=== PATIENT | female | born 1975 | race Caucasian/White ===

== ENCOUNTER 2023-01-20 10:05 | Outpatient (AMB) | payer MEDICAID, SELFPAY ==
[2023-01-20 10:09] VITALS: BP 104/82; PULSE 79; O2SAT 99; BMI 20.2
--- NOTE | 2023-01-20 10:09 | MHC.OFFVIS ---
Intake Vital Signs 01/20/23 10:09 Height 5 ft 3 in Weight 114 lb 2 oz BMI 20.2 BP 104/82 Blood Pressure Location Rt brachial Position Sitting Pulse 79 Pulse Source Pulse Oximeter Pulse Oximetry (%) 99 Oxygen Delivery Method Room Air Intake Visit Reasons: NPV-Migraines Intake Note: Pt presents as a npv for Migraines. Pt states that the headaches are pretty consistent and started at age 10 or so. Pt is using ajovy injections and they help a little. regular migraines without aura. Store Operations Specialist Required: No Allergies Sulfa (Sulfonamide Antibiotics) [Sulfa (Sulfonamides)] Adverse Reaction (Unverified 01/20/23 10:15) N/V Medication List - Last Reconciled 01/20/23 by RAFFY Saeed citalopram 20 mg PO DAILY fremanezumab-vfrm (Ajovy) mg subcut ibuprofen 200 mg PO Q6H PRN [ketoralac IM PRN] lorazepam 0.5 mg PO TID PRN ondansetron 4 mg PO Q6H PRN tramadol 50 mg PO BID PRN HPI HPI Comments History of Present Illness Details Right-handed 47-yr-old female presents for new pt evaluation of headache disorder, specifically per referral by Dr Rome Clemente to discuss further optimizing her migraine treatment regimen. Headache questionnaire: Age/time of onset? Around age 10 Preceding causes? None. Headache characteristics? Always left sided- moves up from the back of the head up into head over into the jaw and down into her neck. Dull ache, stabbing if more severe Pain intensity? [id number] Prodrome symptoms? Foggy and tiredness, possibly some head pressure Aura? When she 1st had migraines, she had numbness and tingling and would speak in jibebrish Associated symptoms? photophobia, phonophobia, some osmophobia, left sided allodynia, sometimes nausea, lightheaded/dizzy, brain fog Focal weakness, Parethesias, Autonomic s/s? Watery. Postdrome? Residual fatigue and fogginess Triggers? Weather changes, alcohol, certain horse rider, stress Positional, valsalva, exertional, sexual activity triggers? Sometimes jogging if it really hot. Menstrual triggers? some menstrual changes- but has a mirena IUD Time of day? Worse as the day goes on- usually the evening Duration? Varies- few hours-days Frequency? Varies- at least 15 headache days per month How does headache impact your life? Sometimes has to miss work- works as a therapist at [employer]. Current acute medication use/interventions: Using Tramadol- using a few times a week for LUE CRPS. Previous acute medication use: Sumatriptan- ineffective. Current preventative medication use: Ajovy 225mg either 225mg monthly and more recently 675mg q 3 months- helps but then wears off. Previous preventative medication use: Topiramate- ineffective. Note: She has not tried CCB or BBs d/t lightheadedness and prone to low BP/hypotension Non-pharmacological interventions: Rest, ice caps Other history of headache disorder? None History of musculoskeletal disorders or injury? In 2018, she had a bicep/shoulder injury- after the shoulder repair she had increased LUE pain- was dx'd w/ CRPS. Had a Ketamine inj at [facility]- which was helpful but does still have some LUE discomfort and left hand discolorations- sometimes worse when the headaches worse. History of concussion/head injury? Had a skull fracture at around 18 months- no residual effects. History of mood disorder? Mild anxiety History of sleep disorder? Can have difficulty falling asleep at times History of respiratory disease? None History of CV disease? None History of coagulopathy? None History of endocrine or metabolic disease? None History of seizure? None Other? None Family planning? None Family history of migraine or other headache disorder? Her mother has migraine PFSH Medical History (Updated 01/20/23 @ 17:38 by RAFFY Saeed) GERD (gastroesophageal reflux disease) Migraine with aura Skull fracture Surgical History (Updated 01/20/23 @ 10:18 by Kristel Elena CMA) History of shoulder surgery Family History (Updated 01/20/23 @ 10:19 by Kristel Elena CMA) Father Asthma Mother Osteoporosis Social History (Updated 01/20/23 @ 10:19 by Kristel Elena CMA) Alcohol intake: current Alcohol intake frequency: holidays/special occasions only Patient Tobacco Use Status: Never used Tobacco Review of Systems Const Details: See scanned ROS form Physical Exam Vital Signs: Last Vital Signs Pulse 79 01/20/23 10:09 BP 104/82 01/20/23 10:09 Pulse Ox 99 01/20/23 10:09 Oxygen Delivery Method Room Air 01/20/23 10:09 BMI result Body Mass Index 20.2 Const Orientation/consciousness: patient oriented x3 HEENT Other: No palpable scalp tenderness. Head: Yes normocephalic Resp Effort & Inspection: normal respiratory effort and able to speak in complete sentences Back/Spine/Pelvis Other: Bilateral posterior cervical tightness. Cervical ROM: full Left Spurling: normal Right Spurling: normal. Neuro Other: Mild decreased muscle bulk in LUE compared to right General: patient oriented x3 Cranial nerves: Yes CN's II-XII intact bilaterally (w/ just slight left facial asymmetry- ? baseline) Cognition (Neuro): normal cognition Gait exam (Neuro): Normal gait present Motor exam (neuro): 5/5 motor strength present throughout and Pronator motor function not present Deep tendon reflexes (DTR's): Right triceps reflex intensity grade: 2+, Left triceps reflex intensity grade: 2+, Rt Biceps (C5, C6): 2+, Left biceps reflex intensity grade: 2+, Right brachioradialis reflex intensity grade: 2+, Left brachioradialis reflex intensity grade: 2+, Right patellar reflex intensity grade: 2+ and Left patellar reflex intensity grade: 2+ Coordination: [id number] test normal, tandem gait normal and Romberg test negative Pupils: Normal pupillary reactivity/response: bilateral Psych Appearance: grossly normal Mental Status: mental status grossly normal Speech and movement: Normal speech and movement present Affect: normal affect Attitude: cooperative Thought process: Normal thought process present Assessment & Plan Assessment & Plan (1) Chronic migraine without aura: Code(s): G43.709 - Chronic migraine without aura, not intractable, without status migrainosus (2) CRPS (complex regional pain syndrome), type II, upper: Comment: LUE- following left shoulder overuse injury Code(s): G56.40 - Causalgia of unspecified upper limb Plan For overall headache management: Discussed importance of good self-care, including but not limited to maintaining a healthy diet, adequate fluid intake, adequate sleep, and engaging in regular physical activity. For headache triggers: Track headaches, especially after any treatment regimen changes. [employer] is one of many headache tracking apps. For acute headache treatment: Discussed importance of taking acute medications at the first sign of headache, however stressed importance of avoiding acute medication overuse (especially with combined headache medications). Trial Zolmitriptan 5mg tab, 1 tab at onset of headache, may repeat in 2 hours. Max of 2 tabs (10mg) per 24 hours. May adjunct with OTC Tylenol 650mg q 4 hours, Ibuprofen 600mg q 6 hours, or Naproxen 440mg q 12 hrs prn. Reviewed potential adverse effects of triptans, including but not limited to nausea, fatigue, chest tightness/tingling (usually passes within a few minutes), medication overuse headaches. Previous acute migraine medication trials: Sumatriptan- ineffective, Rizatriptan- ineffective Acute migraine medication contraindications: None at this time For headache prevention medication: Discussed that preventative medications should be taken routinely as prescribed for best effect, it may take several weeks for full effect to take effect. Start Amitriptyline 10mg qhs (avoid taking at same time as Tramadol)- in hopes this reduces migraine burden and LUE CRPS s/s- and reduces need for prn Tramadol. Start Botox for chronic migraine tx. Once Botox started, hold Ajovy, as this has not been fully effective d/t wearing off effect. Previous migraine prevention medication trials: Topiramate- ineffective. Migraine prevention medication contraindications: CCB or BBs d/t lightheadedness and prone to low BP/hypotension Information also given on non-pharmacological interventions, such as Cefaly or Nerivio neuromodulation devices. Pt to follow-up in 3 months or sooner prn. Medications: New amitriptyline 10 mg PO BEDTIME 30 days 30 tabs 3RF onabotulinumtoxinA (Botox) inject 155 units IM across forehead, scalp, and neck 200 units IM ONCE 12 weeks 1 ea 3RF G43.709 - Chronic migraine without aura, not intractable, without status migrainosus zolmitriptan take 1 tab at onset of headache; if no relief, may repeat 1 tab after at least 2 hrs; max = 2 tabs/24 hrs PO 30 days 14 tabs 3RF Coding Level of Care Code New Pt Level 4 (30776) Diagnoses Chronic migraine without aura G43.709 CRPS (complex regional pain syndrome), type II, upper G56.40
== END 2023-01-20 11:27 | disposition home or self-care (01) ==
PROVIDERS: Visit Provider Nurse Practitioner Family
DX: G43.709 Chronic migraine without aura, not intractable, without status migrainosus (principal); G56.40 Causalgia of unspecified upper limb
CPT/HCPCS: 99204

== ENCOUNTER → 2023-01-20 10:05 | Outpatient (BNVA) | payer OTHER, MEDICAID, SELFPAY | PROVIDERS: Visit Provider Nurse Practitioner Family | DX: G43.709 Chronic migraine without aura, not intractable, without status migrainosus (principal); G56.40 Causalgia of unspecified upper limb | CPT/HCPCS: 99204 ==

== ENCOUNTER 2023-05-02 14:49 | Outpatient (AMB) | payer OTHER, MEDICAID, SELFPAY ==
[2023-05-02 14:54] VITALS: BP 122/84; BMI 20.8
--- NOTE | 2023-05-02 14:54 | A.OFFVIS_ITS ---
Intake Vital Signs 05/02/23 14:54 Height 5 ft 3 in Weight 117 lb 6 oz BMI 20.8 BP 122/84 Blood Pressure Location Rt brachial Position Sitting Intake Visit Reasons: 3M Migraines Intake Note: Patient presents for 3 month migraines. Patient states They've been very consistent from the last time not a lot of change. Allergies Sulfa (Sulfonamide Antibiotics) [Sulfa (Sulfonamides)] Adverse Reaction (Unverified 05/02/23 14:58) N/V Medication List - Last Reconciled 05/02/23 by RAFFY Saeed amitriptyline 10 mg PO BEDTIME 30 days citalopram 20 mg PO DAILY fremanezumab-vfrm (Ajovy) mg subcut ibuprofen 200 mg PO Q6H PRN [ketoralac IM PRN] lorazepam 0.5 mg PO TID PRN onabotulinumtoxinA (Botox) 200 units IM ONCE 12 weeks ondansetron 4 mg PO Q6H PRN tramadol 50 mg PO BID PRN zolmitriptan take 1 tab at onset of headache; if no relief, may repeat 1 tab after at least 2 hrs; max = 2 tabs/24 hrs PO 30 days HPI HPI Comments History of Present Illness Details 47-yr-old female presents for f/u visit. Pt denies any significant interval medical changes. Pt reports she continues to have left sided headache- moves up from the back of the head up into head over into the jaw and down into her neck, dull ache and/or stabbing pain. Occurs at least 15 days per month. Starting Amitriptyline did not help. Amitriptyline did not help her LUE CRPS symptoms either- pt feels the migraine and LUE CGRP s/s often overlap. The Zomig is not always effective, but does not always catch the migraine in time. [facility] Medical History Migraine with aura Skull fracture GERD (gastroesophageal reflux disease) Surgical History History of shoulder surgery Family History Father Asthma Mother Osteoporosis Social History (Reviewed 10/24/23 @ 14:58 by DAKOTA Saleem Alcohol intake: current Alcohol intake frequency: holidays/special occasions only Patient Tobacco Use Status: Never used Tobacco Review of Systems Const All systems reviewed & are unremarkable except as noted in HPI and below Physical Exam Vital Signs: Last Vital Signs BP 122/84 05/02/23 14:54 BMI result Body Mass Index 20.8 Const General: cooperative and no acute distress Orientation/consciousness: patient oriented x3 HEENT Head: Yes normocephalic Resp Effort & Inspection: normal respiratory effort and able to speak in complete sentences Neuro General: patient oriented x3, gait normal and CN's II-XI intact bilaterally Cognition (Neuro): normal cognition Motor exam (neuro): 5/5 motor strength present throughout Psych Appearance: grossly normal Mental Status: mental status grossly normal Speech and movement: Normal speech and movement present Affect: normal affect Attitude: cooperative Thought process: Normal thought process present Thought content: Normal thought content present Insight: Good insight present (Psych) Judgement: Good judgement present (Psych) Assessment & Plan Assessment & Plan (1) Chronic migraine without aura: Code(s): G43.709 - Chronic migraine without aura, not intractable, without status migrainosus (2) CRPS (complex regional pain syndrome), type II, upper: Comment: LUE- following left shoulder overuse injury Code(s): G56.40 - Causalgia of unspecified upper limb Plan ? For overall headache management: Optimize good self-care, including but not limited to maintaining a healthy diet, adequate fluid intake, adequate sleep, and engaging in regular physical activity. For headache triggers: Track headaches, especially after any treatment regimen changes. ? For acute headache treatment: Continue Zolmitriptan 5mg tab, 1 tab at onset of headache, may repeat in 2 hours. Max of 2 tabs (10mg) per 24 hours. May adjunct with OTC Tylenol 650mg q 4 hours, Ibuprofen 600mg q 6 hours, or Naproxen 440mg q 12 hrs prn. Trial Nerivio qd prn- form signed. Previous acute migraine medication trials: Sumatriptan- ineffective, Rizatriptan- ineffective Acute migraine medication contraindications: None at this time ? For headache prevention medication: Continue Amitriptyline 10mg qhs (avoid taking at same time as Tramadol)- also LUE CRPS s/s- and reduces need for prn Tramadol. Start Botox for chronic migraine tx- approved, will set up 1st injection appt. Once Botox started, hold Ajovy, as this has not been fully effective d/t wearing off effect. May try Nerivio qod. Previous migraine prevention medication trials: Topiramate- ineffective after > 8 week trial. Migraine prevention medication contraindications: CCB or BBs d/t lightheadedness and prone to low BP/hypotension ? Pt to follow-up in 4 months or sooner prn. Coding Level of Care Code Est Pt Level 4 (07452) Diagnoses Chronic migraine without aura G43.709 CRPS (complex regional pain syndrome), type II, upper G56.40
== END 2023-05-02 15:37 | disposition home or self-care (01) ==
PROVIDERS: PCP Psychiatry & Neurology Neurology; Visit Provider Nurse Practitioner Family
DX: G43.709 Chronic migraine without aura, not intractable, without status migrainosus (principal); G56.40 Causalgia of unspecified upper limb
CPT/HCPCS: 99214

== ENCOUNTER → 2023-05-02 14:49 | Outpatient (BNVA) | payer OTHER, MEDICAID, SELFPAY | PROVIDERS: Visit Provider Nurse Practitioner Family ==

== ENCOUNTER 2023-06-05 10:22 | Outpatient (AMB) | payer OTHER, MEDICAID, SELFPAY ==
[2023-06-05 10:27] VITALS: BP 108/70; PULSE 79; RESP 16; O2SAT 96; BMI 20.5
--- NOTE | 2023-06-05 10:27 | A.OFFVIS_ITS ---
Intake Vital Signs 06/05/23 10:27 Height 5 ft 3 in Weight 116 lb BMI 20.5 BP 108/70 Blood Pressure Location Rt brachial Position Sitting Respiration 16 Pulse 79 Pulse Source Pulse Oximeter Pulse Oximetry (%) 96 Oxygen Delivery Method Room Air Intake Visit Reasons: botox-LVM Intake Note: Pt presents tot he office for Botox injections. Visitor Services Assistant Required: No Allergies Sulfa (Sulfonamide Antibiotics) [Sulfa (Sulfonamides)] Adverse Reaction (Unverified 06/05/23 10:27) N/V Medication List - Last Reconciled 06/05/23 by China Olson MD amitriptyline 10 mg PO BEDTIME 30 days citalopram 20 mg PO DAILY fremanezumab-vfrm (Ajovy) mg subcut ibuprofen 200 mg PO Q6H PRN [ketoralac IM PRN] lorazepam 0.5 mg PO TID PRN onabotulinumtoxinA (Botox) 200 units IM ONCE 12 weeks ondansetron 4 mg PO Q6H PRN tramadol 50 mg PO BID PRN zolmitriptan take 1 tab at onset of headache; if no relief, may repeat 1 tab after at least 2 hrs; max = 2 tabs/24 hrs PO 30 days HPI HPI Comments History of Present Illness0 Details ? 47y/o female comes for treatment of migraines with botox. ??? Most frequent reported adverse reactions following injection of botox for chronic migraine include neck pain (9%), headache(5%), eyelid ptosis(4%), migraine(4%), muscular weakness(4%), musculuskeletal stiffness(4%), bronchitis(3%), injection site pain (3%), musculoskeletal pain(3%), myalgia(3%), facial paresis(2%), HTN(2%) and muscle spasms(2%) were discussed in detail. ??? Botulinum toxin typeA 200units Lot no [id number] expiration October 2025 was diluted with 4 cc of normal saline . ??? Muscles injected- ??? Frontalis 4 sites ??? Procerus 1 site ??? Opto Mechanical Engineer- 2 sites ??? Temporalis- 8 sites ??? Occipitalis- 6 sites ??? Cervical paraspinals- 4 sites zygomaticus major 2 sites ??? Trapezius- 6 sites- 10 units each ??? 5 units each in 31 site ??? Total use- 195units ??? Discarded-5units [facility] Medical History Migraine with aura Skull fracture GERD (gastroesophageal reflux disease) Surgical History History of shoulder surgery Family History Father Asthma Mother Osteoporosis Alcohol intake: current Alcohol intake frequency: holidays/special occasions only Patient Tobacco Use Status: Never used Tobacco Physical Exam Vital Signs: Last Vital Signs Pulse 79 06/05/23 10:27 Resp 16 06/05/23 10:27 BP 108/70 06/05/23 10:27 Pulse Ox 96 06/05/23 10:27 Oxygen Delivery Method Room Air 06/05/23 10:27 BMI result Body Mass Index 20.5 Const General: cooperative and no acute distress Orientation/consciousness: patient oriented x3 HEENT Head: Yes normocephalic Resp Effort & Inspection: normal respiratory effort and able to speak in complete sentences Neuro General: patient oriented x3, gait normal and CN's II-XI intact bilaterally Cognition (Neuro): normal cognition Motor exam (neuro): 5/5 motor strength present throughout Psych Appearance: grossly normal Mental Status: mental status grossly normal Speech and movement: Normal speech and movement present Affect: normal affect Attitude: cooperative Thought process: Normal thought process present Thought content: Normal thought content present Insight: Good insight present (Psych) Judgement: Good judgement present (Psych) Office Procedures Botulinum toxin Injection 96430 - Migraine Procedure code (CPT) selection complete Office Meds onabotulinumtoxinA 200 unit solution for injection Performing Provider: China Olson MD Performing Location: [facility] [place] [facility] Administered by: China Olson MD on 06/05/23 10:57 Dose Route Admin Location Dispensed Lot Number Expiration Date [facility] Contracts Specialist 195 unit IM 200 units [id number] 10/08/25 9303-6399-64 ALLERGAN/BOTOX Comments: see hpi Assessment & Plan Assessment & Plan (1) Chronic migraine without aura: Code(s): G43.709 - Chronic migraine without aura, not intractable, without status migrainosus Plan Patient tolerated the procedure well she will call with any side effects. Orders: Orders AMB Botulinum toxin Injection - Patient Supplied Today G43.709 - Chronic migraine without aura, not intractable, without status migrainosus Coding Level of Care Code Est Pt Level 1 (63630) Diagnoses Chronic migraine without aura G43.709 CPT Codes Botox Injection - Botox 3: 74384 - Migraine ([id number])
== END 2023-06-05 10:51 | disposition home or self-care (01) ==
PROVIDERS: PCP Psychiatry & Neurology Neurology; Visit Provider Psychiatry & Neurology Neurology
DX: G43.709 Chronic migraine without aura, not intractable, without status migrainosus (principal)
CPT/HCPCS: 64615

== ENCOUNTER → 2023-06-05 10:22 | Outpatient (BNVA) | payer OTHER, MEDICAID, SELFPAY | PROVIDERS: PCP Psychiatry & Neurology Neurology; Visit Provider Psychiatry & Neurology Neurology | DX: G43.709 Chronic migraine without aura, not intractable, without status migrainosus (principal) | CPT/HCPCS: 64615; 99211; J0585 ==

== ENCOUNTER 2023-09-12 14:27 | Outpatient (AMB) | payer OTHER, MEDICAID, SELFPAY ==
--- NOTE | 2023-09-12 14:29 | A.OFFVIS_ITS ---
Intake Vital Signs 09/12/23 14:30 Height 5 ft 3 in Weight 116 lb BMI 20.5 BP 108/64 Blood Pressure Location Rt brachial Position Sitting Respiration 16 Pulse 64 Pulse Source Palpation Intake Visit Reasons: Botox-Unable to lvm Intake Note: Pt presents to the office for Botox injections. Emergency Response Officer Required: No Allergies Sulfa (Sulfonamide Antibiotics) [Sulfa (Sulfonamides)] Adverse Reaction (Unverified 09/12/23 14:29) N/V Medication List - Last Reconciled 09/12/23 by China Olson MD amitriptyline 10 mg PO BEDTIME 30 days citalopram 20 mg PO DAILY fremanezumab-vfrm (Ajovy) mg subcut ibuprofen 200 mg PO Q6H PRN [ketoralac IM PRN] lorazepam 0.5 mg PO TID PRN onabotulinumtoxinA (Botox) 200 units IM ONCE 12 weeks ondansetron 4 mg PO Q6H PRN tramadol 50 mg PO BID PRN zolmitriptan take 1 tab at onset of headache; if no relief, may repeat 1 tab after at least 2 hrs; max = 2 tabs/24 hrs PO 30 days HPI HPI Comments History of Present Illness Details ? 47y/o female comes for treatment of migraines with botox. How many migraine days prior to botox- 25 How long do the migraines last 1 day Intensity of migraine- 10 ER visits related to migraine- none Effectiveness of botox from last two treatment(s) How many migraine days since receiving treatment: 5-6 days Change? in intensity of migraine?decreased Change in frequency of migraine?decreased Change in use of acute medication for migraine?decreased Change in quality of life?decreased ER visits related to migraine?0 Last treatment 06/01 ??? Most frequent reported adverse reactions following injection of botox for chronic migraine include neck pain (9%), headache(5%), eyelid ptosis(4%), migraine(4%), muscular weakness(4%), musculuskeletal stiffness(4%), bronchitis(3%), injection site pain (3%), musculoskeletal pain(3%), myalgia(3%), facial paresis(2%), HTN(2%) and muscle spasms(2%) were discussed in detail. ??? Botulinum toxin typeA 200units Lot no [id number] expiration December 2025 was d iluted with 4 cc of normal saline . ??? Muscles injected- ??? Frontalis 4 sites ??? Procerus 1 site ??? Engineering Operations Leader- 2 sites ??? Temporalis- 8 sites ??? Occipitalis- 6 sites ??? Cervical paraspinals- 4 sites zygomaticus major 2 sites ??? Trapezius- 6 sites- 10 units each ??? 5 units each in 31 site ??? Total use- 195units ??? Discarded-5units [facility] Medical History Migraine with aura Skull fracture GERD (gastroesophageal reflux disease) Surgical History History of shoulder surgery Family History Father Asthma Mother Osteoporosis Social History Alcohol intake: current Alcohol intake frequency: holidays/special occasions only Patient Tobacco Use Status: Never used Tobacco Physical Exam Vital Signs: Last Vital Signs Pulse 64 09/12/23 14:30 Resp 16 09/12/23 14:30 BP 108/64 09/12/23 14:30 BMI result Body Mass Index 20.5 Const General: cooperative and no acute distress Orientation/consciousness: patient oriented x3 HEENT Head: Yes normocephalic Resp Effort & Inspection: normal respiratory effort and able to speak in complete sentences Neuro General: patient oriented x3, gait normal and CN's II-XI intact bilaterally Cognition (Neuro): normal cognition Motor exam (neuro): 5/5 motor strength present throughout Office Procedures Botulinum toxin Injection 20381 - Migraine Procedure code (CPT) selection complete Office Meds onabotulinumtoxinA 200 unit solution for injection Performing Provider: China Olson MD Performing Location: [facility] [place] [facility] Administered by: China Olson MD on 09/12/23 15:00 Dose Route Admin Location Dispensed Lot Number Expiration Date [facility] [place]NOTE 2] Retail General Manager 195 unit subcut 200 units [id number] 12/08/25 2854-5545-08 ALLERGAN/BOTOX Comments: see HPI Assessment & Plan Assessment & Plan (1) Chronic migraine without aura: Code(s): G43.709 - Chronic migraine without aura, not intractable, without status migrainosus Plan Patient tolerated the procedure well she will call with any side effects. Orders: Orders AMB Botulinum toxin Injection - Patient Supplied Today G43.709 - Chronic migraine without aura, not intractable, without status migrainosus Coding Level of Care Code Est Pt Level 1 (22934) Diagnoses Chronic migraine without aura G43.709 CPT Codes Botox Injection - Botox 3: 70214 - Migraine ([id number])
[2023-09-12 14:30] VITALS: BP 108/64; PULSE 64; RESP 16; BMI 20.5
== END 2023-09-12 15:07 | disposition home or self-care (01) ==
PROVIDERS: PCP Psychiatry & Neurology Neurology; Visit Provider Psychiatry & Neurology Neurology
DX: G43.709 Chronic migraine without aura, not intractable, without status migrainosus (principal)
CPT/HCPCS: 64615

== ENCOUNTER → 2023-09-12 14:27 | Outpatient (BNVA) | payer OTHER, MEDICAID, SELFPAY | PROVIDERS: PCP Psychiatry & Neurology Neurology; Visit Provider Psychiatry & Neurology Neurology | DX: G43.709 Chronic migraine without aura, not intractable, without status migrainosus (principal) | CPT/HCPCS: 64615; 99211; J0585 ==

== ENCOUNTER 2023-11-28 14:31 | Outpatient (AMB) | payer OTHER, SELFPAY ==
--- NOTE | 2023-11-28 14:44 | MHC.OFFVIS ---
Vital Signs 11/28/23 14:48 Height 5 ft 3 in Weight 112 lb 2 oz BMI 19.9 BP 120/80 Blood Pressure Location Lt brachial Position Sitting Pulse 74 Pulse Source Pulse Oximeter Pulse Oximetry (%) 97 Oxygen Delivery Method Room Air Intake Visit Reasons: 4M follow up-LVM Intake Note: Patient presents for 4 months f/u. migraines doing better. Allergies Sulfa (Sulfonamide Antibiotics) [Sulfa (Sulfonamides)] Adverse Reaction (Verified 11/28/23 14:48) N/V Medication List - Last Reconciled 11/28/23 by RAFFY Saeed amitriptyline 10 mg PO BEDTIME 30 days citalopram 20 mg PO DAILY fremanezumab-vfrm (Ajovy) mg subcut ibuprofen 200 mg PO Q6H PRN [ketoralac IM PRN] lorazepam 0.5 mg PO TID PRN onabotulinumtoxinA (Botox) 200 units IM ONCE 12 weeks ondansetron 4 mg PO Q6H PRN tramadol 50 mg PO BID PRN zolmitriptan take 1 tab at onset of headache; if no relief, may repeat 1 tab after at least 2 hrs; max = 2 tabs/24 hrs PO 30 days HPI Comments Details: 47-yr-old female presents for f/u visit. Pt denies any significant interval medical changes. Pt reports she is doing better since starting Botox. She does need a new prior auth for her Ajovy. When there is a delay in her Ajovy, such as now, she has an increase in her monthly migraine days. She notes that when she is taking both Ajovy and Botox together, she has better migraine control. She is having 6-10 migraine days per month, which is a reduction from her baseline of > 15 migraine days per month. Using Tylenol, Tramadol- also uses for CRPS, and Sleep- which helps. On both Ajovy and Botox, pt is much less likely to miss work. She is not using Zolmitriptan prn- not sure of effectiveness. Baseline headache characteristics: Aura: When she 1st had migraines, she had numbness and tingling and would speak in jibberish Headache: Fzek-iwm-cfzmih, Dull ache, stabbing if more severe, always left sided- moves up from the back of the head up into head over into the jaw and down into her neck. A/w photophobia, phonophobia, some osmophobia, left sided allodynia, sometimes nausea, lightheaded/dizzy, brain fog, watery. Prodrome symptoms: Foggy and tiredness, possibly some head pressure. [facility] Medical History (Updated 11/28/23 @ 15:24 by RAFFY Saeed) Migraine with aura Skull fracture GERD (gastroesophageal reflux disease) Surgical History History of shoulder surgery Family History Father Asthma Mother Osteoporosis Social History Alcohol intake: current Alcohol intake frequency: holidays/special occasions only Patient Tobacco Use Status: Never used Tobacco Physical Exam Vital Signs: Last Vital Signs Pulse 74 11/28/23 14:48 BP 120/80 11/28/23 14:48 Pulse Ox 97 11/28/23 14:48 Oxygen Delivery Method Room Air 11/28/23 14:48 BMI result Body Mass Index 19.9 Const General: cooperative and no acute distress Orientation/consciousness: patient oriented x3 Resp Effort & Inspection: normal respiratory effort and able to speak in complete sentences Neuro General: patient oriented x3 Cranial nerves: Yes CN's II-XII intact bilaterally Cognition (Neuro): normal cognition Psych Appearance: grossly normal Mental Status: mental status grossly normal Speech and movement: Normal speech and movement present Affect: normal affect Attitude: cooperative Assessment & Plan Assessment & Plan (1) Chronic migraine without aura: Code(s): G43.709 - Chronic migraine without aura, not intractable, without status migrainosus Category: Medical (2) CRPS (complex regional pain syndrome), type II, upper: Comment: NADEEM- following left shoulder overuse injury Code(s): G56.40 - Causalgia of unspecified upper limb Category: Medical (3) Migraine with aura: Code(s): G43.109 - Migraine with aura, not intractable, without status migrainosus Category: Medical Plan For overall headache management: Optimize good self-care, including but not limited to maintaining a healthy diet, adequate fluid intake, adequate sleep, and engaging in regular physical activity. Track headaches. ? For acute headache treatment: Resume Zolmitriptan 5mg tab, 1 tab at onset of headache, may repeat in 2 hours. Max of 2 tabs (10mg) per 24 hours. May adjunct with OTC Tylenol 650mg q 4 hours, Ibuprofen 600mg q 6 hours, or Naproxen 440mg q 12 hrs prn. Use tramdol sparingly for migarine. Previous acute migraine medication trials: Sumatriptan- ineffective, Rizatriptan- ineffective Acute migraine medication contraindications: None at this time ? For headache prevention medication: Continue Amitriptyline 10mg qhs (avoid taking at same time as Tramadol)- also LUE CRPS s/s- and reduces need for prn Tramadol. Continue Botox for chronic migraine tx. Continue Ajovy, as taking Ajovy and Botox concomitantly is more effective then taking either Botox or Ajovy alone. Previous migraine prevention medication trials: Topiramate- ineffective after > 8 week trial. Migraine prevention medication contraindications: CCB or BBs d/t lightheadedness and prone to low BP/hypotension ? Pt to follow-up in 6 months or sooner prn. Medications: Changed From fremanezumab-vfrm (Ajovy) subcut To fremanezumab-vfrm (Ajovy) 225 mg (1.5 mL) subcut ONCE 30 days 1.5 mL 6RF Coding Level of Care Code Est Pt Level 4 (97140) Diagnoses Chronic migraine without aura G43.709 CRPS (complex regional pain syndrome), type II, upper G56.40 Migraine with aura G43.109
[2023-11-28 14:48] VITALS: BP 120/80; PULSE 74; O2SAT 97; BMI 19.9
== END 2023-11-28 15:20 | disposition home or self-care (01) ==
PROVIDERS: PCP Psychiatry & Neurology Neurology; Visit Provider Nurse Practitioner Family
DX: G43.709 Chronic migraine without aura, not intractable, without status migrainosus (principal); G56.40 Causalgia of unspecified upper limb; G43.109 Migraine with aura, not intractable, without status migrainosus
CPT/HCPCS: 99214

== ENCOUNTER → 2023-11-28 14:31 | Outpatient (BNVA) | payer OTHER, SELFPAY | PROVIDERS: PCP Psychiatry & Neurology Neurology; Visit Provider Nurse Practitioner Family ==

== ENCOUNTER 2023-12-18 07:26 | Outpatient (AMB) | payer OTHER, SELFPAY ==
--- NOTE | 2023-12-18 07:40 | MHC.OFFVIS ---
Vital Signs 12/18/23 07:41 Height 5 ft 3 in Weight 112 lb BMI 19.8 BP 110/68 Blood Pressure Location Rt brachial Position Sitting Respiration 16 Pulse 69 Pulse Source Pulse Oximeter Pulse Oximetry (%) 99 Oxygen Delivery Method Room Air Intake Visit Reasons: Botox - LVM Intake Note: Pt presents for Botox injections. Apigee Developer Required: No Allergies Sulfa (Sulfonamide Antibiotics) [Sulfa (Sulfonamides)] Adverse Reaction (Verified 12/18/23 07:41) N/V Medication List - Last Reconciled 12/18/23 by China Olson MD amitriptyline 10 mg PO BEDTIME 30 days citalopram 20 mg PO DAILY fremanezumab-vfrm (Ajovy) 225 mg (1.5 mL) subcut ONCE 30 days ibuprofen 200 mg PO Q6H PRN [ketoralac IM PRN] lorazepam 0.5 mg PO TID PRN onabotulinumtoxinA (Botox) 200 units IM ONCE 12 weeks ondansetron 4 mg PO Q6H PRN tramadol 50 mg PO BID PRN zolmitriptan take 1 tab at onset of headache; if no relief, may repeat 1 tab after at least 2 hrs; max = 2 tabs/24 hrs PO 30 days HPI Comments Details: ? 48y/o female comes for treatment of migraines with botox. How many migraine days prior to botox- 25 How long do the migraines last 1 day Intensity of migraine- 02/16 ER visits related to migraine- none Effectiveness of botox from last two treatment(s) How many migraine days since receiving treatment: 5-6 days Change? in intensity of migraine?decreased Change in frequency of migraine?decreased Change in use of acute medication for migraine?decreased Change in quality of life?decreased ER visits related to migraine?0 Last treatment 09/30 ??? Most frequent reported adverse reactions following injection of botox for chronic migraine include neck pain (9%), headache(5%), eyelid ptosis(4%), migraine(4%), muscular weakness(4%), musculuskeletal stiffness(4%), bronchitis(3%), injection site pain (3%), musculoskeletal pain(3%), myalgia(3%), facial paresis(2%), HTN(2%) and muscle spasms(2%) were discussed in detail. ??? Botulinum toxin typeA 200units Lot no [id number] expiration December 2025 was diluted with 4 cc of normal saline . ??? Muscles injected- ??? Frontalis 4 sites ??? Procerus 1 site ??? Pediatrics Hospitalist- 2 sites ??? Temporalis- 8 sites ??? Occipitalis- 6 sites ??? Cervical paraspinals- 4 sites zygomaticus major 2 sites ??? Trapezius- 6 sites- 10 units each ??? 5 units each in 31 site ??? Total use- 195units ??? Discarded-5units [facility] Medical History Migraine with aura Skull fracture GERD (gastroesophageal reflux disease) Surgical History History of shoulder surgery Family History Father Asthma Mother Osteoporosis Social History Alcohol intake: current Alcohol intake frequency: holidays/special occasions only Patient Tobacco Use Status: Never used Tobacco Physical Exam Vital Signs: Last Vital Signs Pulse 69 12/18/23 07:41 Resp 16 12/18/23 07:41 BP 110/68 12/18/23 07:41 Pulse Ox 99 12/18/23 07:41 Oxygen Delivery Method Room Air 12/18/23 07:41 BMI result Body Mass Index 19.8 Const General: cooperative and no acute distress Orientation/consciousness: patient oriented x3 Neuro General: patient oriented x3 Cranial nerves: Yes CN's II-XII intact bilaterally Cognition (Neuro): normal cognition Office Procedures Botulinum toxin Injection 00211 - Migraine Procedure code (CPT) selection complete Office Meds onabotulinumtoxinA 200 unit solution for injection Performing Provider: China Olson MD Performing Location: [facility] [place] [facility] Administered by: China Olson MD on 12/18/23 08:18 Dose Route Admin Location Dispensed Lot Number Expiration Date [facility] [employer] 195 unit subcut 200 units [id number] 12/08/25 2809-8029-53 ALLERGAN/BOTOX Comments: see HPI Assessment & Plan Assessment & Plan (1) Chronic migraine without aura: Code(s): G43.709 - Chronic migraine without aura, not intractable, without status migrainosus Category: Medical Plan Patient tolerated the procedure well she will call with any side effects. Orders: Orders AMB Botulinum toxin Injection 12/18/23 G43.709 - Chronic migraine without aura, not intractable, without status migrainosus Coding Level of Care Code Est Pt Level 1 (98582) Diagnoses Chronic migraine without aura G43.709 CPT Codes Botox Injection - Botox 3: 42204 - Migraine ([id number])
[2023-12-18 07:41] VITALS: BP 110/68; PULSE 69; RESP 16; O2SAT 99; BMI 19.8
== END 2023-12-18 08:02 | disposition home or self-care (01) ==
PROVIDERS: PCP Psychiatry & Neurology Neurology; Visit Provider Psychiatry & Neurology Neurology
DX: G43.709 Chronic migraine without aura, not intractable, without status migrainosus (principal)
CPT/HCPCS: 64615

== ENCOUNTER → 2023-12-18 07:26 | Outpatient (BNVA) | payer OTHER, SELFPAY | PROVIDERS: PCP Psychiatry & Neurology Neurology; Visit Provider Psychiatry & Neurology Neurology | DX: G43.709 Chronic migraine without aura, not intractable, without status migrainosus (principal) | CPT/HCPCS: 64615; 99211; J0585 ==

== ENCOUNTER 2024-03-20 15:25 | Outpatient (AMB) | payer OTHER, SELFPAY ==
--- NOTE | 2024-03-20 15:34 | A.OFFVIS_ITS ---
Vital Signs 03/20/24 15:37 Height 5 ft 3 in Weight 113 lb 2 oz BMI 20.0 BP 122/70 Blood Pressure Location Rt brachial Position Sitting Respiration 16 Pulse 77 Pulse Source Pulse Oximeter Pulse Oximetry (%) 99 Oxygen Delivery Method Room Air Intake Visit Reasons: Botox Intake Note: Pt presents to the office for Botox injections for chronic migraines. Clinical Application Specialist Required: No Allergies Sulfa (Sulfonamide Antibiotics) [Sulfa (Sulfonamides)] Adverse Reaction (Verified 03/20/24 15:35) N/V Medication List - Last Reconciled 03/21/24 by China Olson MD amitriptyline 10 mg PO BEDTIME 30 days citalopram 20 mg PO DAILY fremanezumab-vfrm (Ajovy) 225 mg (1.5 mL) subcut ONCE 30 days ibuprofen 200 mg PO Q6H PRN [ketoralac IM PRN] lorazepam 0.5 mg PO TID PRN onabotulinumtoxinA (Botox) 200 units IM ONCE 12 weeks ondansetron 4 mg PO Q6H PRN tramadol 50 mg PO BID PRN zolmitriptan take 1 tab at onset of headache; if no relief, may repeat 1 tab after at least 2 hrs; max = 2 tabs/24 hrs PO 30 days HPI Comments Details: ? 48y/o female comes for treatment of migraines with botox. How many migraine days prior to botox- 25 How long do the migraines last 1 day Intensity of migraine- 8/10 ER visits related to migraine- none Effectiveness of botox from last two treatment(s) How many migraine days since receiving treatment: 5-6 days Change? in intensity of migraine?decreased Change in frequency of migraine?decreased Change in use of acute medication for migraine?decreased Change in quality of life?decreased ER visits related to migraine?0 Last treatment 3 months ago ??? Most frequent reported adverse reactions following injection of botox for chronic migraine include neck pain (9%), headache(5%), eyelid ptosis(4%), migraine(4%), muscular weakness(4%), musculuskeletal stiffness(4%), bronchit is(3%), injection site pain (3%), musculoskeletal pain(3%), myalgia(3%), facial paresis(2%), HTN(2%) and muscle spasms(2%) were discussed in detail. ??? Botulinum toxin typeA 200units Lot no [id number] expiration Jun 2026 was diluted with 4 cc of normal saline . ??? Muscles injected- ??? Frontalis 4 sites ??? Procerus 1 site ??? Curam Developer- 2 sites ??? Temporalis- 8 sites ??? Occipitalis- 6 sites ??? Cervical paraspinals- 4 sites zygomaticus major 2 sites ??? Trapezius- 6 sites- 10 units each ??? 5 units each in 31 site ??? Total use- 195units ??? Discarded-5units [facility] Medical History (Updated 03/21/24 @ 11:30 by China Olson MD) Chronic migraine without aura, intractable, without status migrainosus Migraine with aura Skull fracture GERD (gastroesophageal reflux disease) Surgical History History of shoulder surgery Family History Father Asthma Mother Osteoporosis Social History Alcohol intake: current Alcohol intake frequency: holidays/special occasions only Patient Tobacco Use Status: Never used Tobacco Physical Exam Vital Signs: Last Vital Signs Pulse 77 03/20/24 15:37 Resp 16 03/20/24 15:37 BP 122/70 03/20/24 15:37 Pulse Ox 99 03/20/24 15:37 Oxygen Delivery Method Room Air 03/20/24 15:37 BMI result Body Mass Index 20.0 Const General: cooperative and no acute distress Orientation/consciousness: patient oriented x3 Neuro General: patient oriented x3 Cranial nerves: Yes CN's II-XII intact bilaterally Cognition (Neuro): normal cognition Office Procedures Botulinum toxin Injection 12317 - Migraine Procedure code (CPT) selection complete Office Meds onabotulinumtoxinA 200 unit solution for injection Performing Provider: China Olson MD Performing Location: [facility] [place] [facility] Administered by: China Olson MD on 03/21/24 11:32 Dose Route Admin Location Dispensed Lot Number Expiration Date [facility] [employer] Sander 195 unit IM 200 units [id number] 06/09/26 5403-8723-17 ALLERGAN/BOTOX Comments: see HPI Assessment & Plan Assessment & Plan (1) Chronic migraine without aura, intractable, without status migrainosus: Code(s): G43.719 - Chronic migraine without aura, intractable, without status migrainosus Category: Medical Plan Patient tolerated the procedure well she will call with any side effects. Orders: Orders AMB Botulinum toxin Injection - Patient Supplied 03/20/24 G43.719 - Chronic migraine without aura, intractable, without status migrainosus Medications: New onabotulinumtoxinA 200 units IM ONCE 1 ea 0RF migraine G43.719 - Chronic migraine without aura, intractable, without status migrainosus Coding Level of Care Code Est Pt Level 1 (56532) Diagnoses Chronic migraine without aura, intractable, without status migrainosus G43.719 CPT Codes Botox Injection - Botox 3: 20545 - Migraine ([id number])
[2024-03-20 15:37] VITALS: BP 122/70; PULSE 77; RESP 16; O2SAT 99
== END 2024-03-20 15:53 | disposition home or self-care (01) ==
PROVIDERS: PCP Psychiatry & Neurology Neurology; Visit Provider Psychiatry & Neurology Neurology
DX: G43.719 Chronic migraine without aura, intractable, without status migrainosus (principal)
CPT/HCPCS: 64615

== ENCOUNTER → 2024-03-20 15:25 | Outpatient (BNVA) | payer OTHER, SELFPAY | PROVIDERS: PCP Psychiatry & Neurology Neurology; Visit Provider Psychiatry & Neurology Neurology | DX: G43.719 Chronic migraine without aura, intractable, without status migrainosus (principal) | CPT/HCPCS: 64615; 99211; J0585 ==

== ENCOUNTER 2024-06-18 14:53 | Outpatient (AMB) | payer OTHER, SELFPAY ==
[2024-06-18 15:18] VITALS: BP 102/74; PULSE 88; O2SAT 99; BMI 20.2
--- NOTE | 2024-06-18 15:18 | MHC.OFFVIS ---
Vital Signs 06/18/24 15:18 Height 5 ft 3 in Weight 114 lb BMI 20.2 BP 102/74 Blood Pressure Location Rt brachial Position Sitting Pulse 88 Pulse Source Pulse Oximeter Pulse Oximetry (%) 99 Oxygen Delivery Method Room Air Intake Visit Reasons: 7 month F/U Assembler Bonding Required: No Accompanied by: Self / Same As Patient Allergies Sulfa (Sulfonamide Antibiotics) [Sulfa (Sulfonamides)] Adverse Reaction (Verified 06/18/24 15:20) N/V Medication List - Last Reconciled 06/18/24 by RAFFY Saeed amitriptyline 10 mg PO BEDTIME 30 days citalopram 20 mg PO DAILY fremanezumab-vfrm (Ajovy) 225 mg (1.5 mL) subcut ONCE 30 days ibuprofen 200 mg PO Q6H PRN [ketoralac IM PRN] lorazepam 0.5 mg PO TID PRN onabotulinumtoxinA (Botox) 200 units IM ONCE 12 weeks ondansetron 4 mg PO Q6H PRN tramadol 50 mg PO BID PRN zolmitriptan take 1 tab at onset of headache; if no relief, may repeat 1 tab after at least 2 hrs; max = 2 tabs/24 hrs PO 30 days HPI Comments Details: 47-yr-old female presents for f/u visit of chronic migraine. Pt denies any significant interval medical changes. Pt reports she is doing better since starting Botox. She does need a new prior auth for her Ajovy. When there is a delay in her Ajovy, such as now, she has an increase in her monthly migraine days. She notes that when she is taking both Ajovy and Botox together, she has better migraine control. She is having less migraine days per month, now 5-7 days per month, which is a reduction from her baseline of > 15 migraine days per month. She may notice wearing off of her Botox and Ajovy, especially if they become due together. Using Tylenol, Tramadol- also uses for CRPS, and Sleep- which helps. On both Ajovy and Botox, pt is much less likely to miss work. For milder migraine- taking fluids, moving around a little bit can help. She is using Zolmitriptan prn, which is helpful. Baseline headache characteristics: Aura: When she 1st had migraines, she had numbness and tingling and would speak in jibberish Headache: Zmoc-[id number]-vddnwh, Dull ache, stabbing if more severe, always left sided- moves up from the back of the head up into head over into the jaw and down into her neck. A/w photophobia, phonophobia, some osmophobia, left sided allodynia, sometimes nausea, lightheaded/dizzy, brain fog, watery. Prodrome symptoms: Foggy and tiredness, possibly some head pressure. [facility] Medical History (Updated 03/21/24 @ 11:30 by China Olson MD) Chronic migraine without aura, intractable, without status migrainosus Migraine with aura Skull fracture GERD (gastroesophageal reflux disease) Surgical History History of shoulder surgery Family History Father Asthma Mother Osteoporosis Social History Alcohol intake: current Alcohol intake frequency: holidays/special occasions only Patient Tobacco Use Status: Never used Tobacco Physical Exam Vital Signs: Last Vital Signs Pulse 88 06/18/24 15:18 BP 102/74 06/18/24 15:18 Pulse Ox 99 06/18/24 15:18 Oxygen Delivery Method Room Air 06/18/24 15:18 BMI result Body Mass Index 20.2 Const General: cooperative and no acute distress Orientation/consciousness: patient oriented x3 Resp Effort & Inspection: normal respiratory effort and able to speak in complete sentences Neuro General: patient oriented x3 Cranial nerves: Yes CN's II-XII intact bilaterally Cognition (Neuro): normal cognition Psych Appearance: grossly normal Mental Status: mental status grossly normal Speech and movement: Normal speech and movement present Affect: normal affect Attitude: cooperative Assessment & Plan Assessment & Plan (1) Chronic migraine without aura: Code(s): G43.709 - Chronic migraine without aura, not intractable, without status migrainosus Category: Medical (2) CRPS (complex regional pain syndrome), type II, upper: Comment: LUE- following left shoulder overuse injury Code(s): G56.40 - Causalgia of unspecified upper limb Category: Medical (3) Migraine with aura: Code(s): G43.109 - Migraine with aura, not intractable, without status migrainosus Category: Medical (4) Chronic migraine without aura, intractable, without status migrainosus: Code(s): G43.719 - Chronic migraine without aura, intractable, without status migrainosus Category: Medical Plan For overall headache management: Optimize good self-care, including but not limited to maintaining a healthy diet, adequate fluid intake, adequate sleep, and engaging in regular physical activity. Track headaches. Information shared on nonpharmacological treatment options, including neuromodulation devices such as Cefaly, which patient will look into. ? For acute headache treatment: Continue Zolmitriptan 5mg tab, 1 tab at onset of headache, may repeat in 2 hours. Max of 2 tabs (10mg) per 24 hours. May adjunct with OTC Tylenol 650mg q 4 hours, Ibuprofen 600mg q 6 hours, or Naproxen 440mg q 12 hrs prn. Use tramdol sparingly for migraine. Previous acute migraine medication trials: Sumatriptan- ineffective, Rizatriptan- ineffective Acute migraine medication contraindications: None at this time ? For headache prevention medication: Continue Amitriptyline 10mg qhs (avoid taking at same time as Tramadol)- also LUE CRPS s/s- and reduces need for prn Tramadol. Continue Ajovy and Botox concomitantly is more effective then taking either Botox or Ajovy alone, however will adjust timing and dose so that she is receiving alternating doses of Botox or Ajovy on 6 week intervals- in hopes of minimizing wearing off time. Continue Botox for chronic migraine tx- advised to schedule every 12 weeks rather than every 3 months, this may lessen wearing off effect. Continue Ajovy 225 mg subcu q.month for Ramirez dose. Then when July dose due, adjusted Ajovy 2 to 675 mg subcu Q 90 days. Previous migraine prevention medication trials: Topiramate- ineffective after > 8 week trial. Migraine prevention medication contraindications: CCB or BBs d/t lightheadedness and prone to low BP/hypotension ? Pt to follow-up in 6 months or sooner prn. Medications: Changed From fremanezumab-vfrm (Ajovy) 225 mg (1.5 mL) subcut ONCE 30 days 1.5 mL 6RF G43.719 - Chronic migraine without aura, intractable, without status migrainosus To fremanezumab-vfrm (Ajovy) start Jul 10, 2024 67 mg (4.5 mL) subcut ONCE 90 days 405 mL 3RF G43.719 - Chronic migraine without aura, intractable, without status migrainosus Coding Level of Care Code Est Pt Level 4 (74290) Diagnoses Chronic migraine without aura G43.709 CRPS (complex regional pain syndrome), type II, upper G56.40 Migraine with aura G43.109 Chronic migraine without aura, intractable, without status migrainosus G43.719
== END 2024-06-18 15:56 | disposition home or self-care (01) ==
PROVIDERS: PCP Psychiatry & Neurology Neurology; Visit Provider Nurse Practitioner Family
DX: G43.709 Chronic migraine without aura, not intractable, without status migrainosus (principal); G56.40 Causalgia of unspecified upper limb; G43.109 Migraine with aura, not intractable, without status migrainosus; G43.719 Chronic migraine without aura, intractable, without status migrainosus
CPT/HCPCS: 99214

== ENCOUNTER → 2024-06-18 14:53 | Outpatient (BNVA) | payer OTHER, SELFPAY | PROVIDERS: PCP Psychiatry & Neurology Neurology; Visit Provider Nurse Practitioner Family ==

== ENCOUNTER 2024-06-24 07:38 | Outpatient (AMB) | payer OTHER, SELFPAY ==
[2024-06-24 07:44] VITALS: BP 115/70; PULSE 83; O2SAT 100; BMI 20.4
--- NOTE | 2024-06-24 07:44 | MHC.OFFVIS ---
Vital Signs 06/24/24 07:44 Height 5 ft 3 in Weight 115 lb 2 oz BMI 20.4 BP 115/70 Blood Pressure Location Lt brachial Position Sitting Pulse 83 Pulse Source Pulse Oximeter Pulse Oximetry (%) 100 Oxygen Delivery Method Room Air Intake Visit Reasons: Botox Pricing/Signage Team Member Required: No Accompanied by: Self / Same As Patient Allergies Sulfa (Sulfonamide Antibiotics) [Sulfa (Sulfonamides)] Adverse Reaction (Verified 06/24/24 07:48) N/V Medication List - Last Reconciled 06/24/24 by China Olson MD amitriptyline 10 mg PO BEDTIME 30 days citalopram 20 mg PO DAILY fremanezumab-vfrm (Ajovy) 675 mg (4.5 mL) subcut ONCE 90 days ibuprofen 200 mg PO Q6H PRN [ketoralac IM PRN] lorazepam 0.5 mg PO TID PRN onabotulinumtoxinA (Botox) 200 units IM ONCE 12 weeks ondansetron 4 mg PO Q6H PRN tramadol 50 mg PO BID PRN zolmitriptan take 1 tab at onset of headache; if no relief, may repeat 1 tab after at least 2 hrs; max = 2 tabs/24 hrs PO 30 days Do you need a note to return to daycare/school/sports/work: No HPI Comments Details: ? 48y/o female comes for treatment of migraines with botox. How many migraine days prior to botox- 25 How long do the migraines last 1 day Intensity of migraine- 8/10 ER visits related to migraine- none Effectiveness of botox from last two treatment(s) How many migraine days since receiving treatment: 5-6 days Change? in intensity of migraine?decreased Change in frequency of migraine?decreased Change in use of acute medication for migraine?decreased Change in quality of life?decreased ER visits related to migraine?0 Last treatment 3 months ago ??? Most frequent reported adverse reactions following injection of botox for chronic migraine include neck pain (9%), headache(5%), eyelid ptosis(4%), migraine(4%), muscular [id number] expiration Mar 2026 was diluted with 4 cc of normal saline . ??? Muscles injected- ??? Frontalis 4 sites ??? Procerus 1 site ??? Multiple Drum Sander Helper- 2 sites ??? Temporalis- 8 sites ??? Occipitalis- 6 sites ??? Cervical paraspinals- 4 sites zygomaticus major 2 sites ??? Trapezius- 6 sites- 10 units each ??? 5 units each in 31 site ??? Total use- 195units ??? Discarded-5units [facility] Medical History Chronic migraine without aura, intractable, without status migrainosus Migraine with aura Skull fracture GERD (gastroesophageal reflux disease) Surgical History History of shoulder surgery Family History Father Asthma Mother Osteoporosis Social History Alcohol intake: current Alcohol intake frequency: holidays/special occasions only Patient Tobacco Use Status: Never used Tobacco Physical Exam Vital Signs: Last Vital Signs Pulse 83 06/24/24 07:44 BP 115/70 06/24/24 07:44 Pulse Ox 100 06/24/24 07:44 Oxygen Delivery Method Room Air 06/24/24 07:44 BMI result Body Mass Index 20.4 Const General: cooperative and no acute distress Orientation/consciousness: patient oriented x3 Resp Effort & Inspection: normal respiratory effort and able to speak in complete sentences Neuro General: patient oriented x3 Cranial nerves: Yes CN's II-XII intact bilaterally Cognition (Neuro): normal cognition Psych Appearance: grossly normal Mental Status: mental status grossly normal Speech and movement: Normal speech and movement present Affect: normal affect Attitude: cooperative Office Procedures Botulinum toxin Injection 25172 - Migraine Procedure code (CPT) selection complete Office Meds onabotulinumtoxinA 200 unit solution for injection Performing Provider: China Olson MD [place] [facility] [place] [facility] Administered by: China Olson MD on 06/24/24 08:09 Dose Route Admin Location Dispensed Lot Number Expiration Date [facility] Return To Service Inspector 195 unit subcut 200 units [id number] ALLERGAN/BOTOX Comments: see HPI Assessment & Plan Assessment & Plan (1) Chronic migraine without aura, intractable, without status migrainosus: Code(s): G43.719 - Chronic migraine without aura, intractable, without status migrainosus Category: Medical Plan Patient tolerated the procedure well she will call with any side effects. Orders: Orders AMB Botulinum toxin Injection - Patient Supplied N/C Today G43.719 - Chronic migraine without aura, intractable, without status migrainosus Medications: New onabotulinumtoxinA 200 units subcut ONCE 1 ea 0RF migraine G43.719 - Chronic migraine without aura, intractable, without status migrainosus Coding Level of Care Code Est Pt Level 1 (08737) Diagnoses Chronic migraine without aura, intractable, without status migrainosus G43.719 CPT Codes Botox Injection - Botox 3: 34849 - Migraine ([id number])
== END 2024-06-24 08:11 | disposition home or self-care (01) ==
PROVIDERS: PCP Psychiatry & Neurology Neurology; Visit Provider Psychiatry & Neurology Neurology
DX: G43.719 Chronic migraine without aura, intractable, without status migrainosus (principal)
CPT/HCPCS: 64615

== ENCOUNTER 2024-09-24 07:37 | Outpatient (AMB) | payer OTHER, SELFPAY ==
--- NOTE | 2024-09-24 07:41 | A.OFFVIS_ITS ---
Intake Visit Reasons: BOTOX Intake Note: Patient presents for botox injection Patient supplied Allergies Sulfa (Sulfonamide Antibiotics) [Sulfa (Sulfonamides)] Adverse Reaction (Verified 09/24/24 07:43) N/V Medication List - Last Reconciled 09/24/24 by China Olson MD amitriptyline 10 mg PO BEDTIME 30 days citalopram 20 mg PO DAILY fremanezumab-vfrm (Ajovy) 675 mg (4.5 mL) subcut ONCE 90 days ibuprofen 200 mg PO Q6H PRN [ketoralac IM PRN] lorazepam 0.5 mg PO TID PRN onabotulinumtoxinA (Botox) 200 units IM ONCE 12 weeks ondansetron 4 mg PO Q6H PRN tramadol 50 mg PO BID PRN zolmitriptan take 1 tab at onset of headache; if no relief, may repeat 1 tab after at least 2 hrs; max = 2 tabs/24 hrs PO 30 days HPI Comments Details: ? 48y/o female comes for treatment of migraines with botox. How many migraine days prior to botox- 25 How long do the migraines last 1 day Intensity of migraine- 8 ER visits related to migraine- none Effectiveness of botox from last two treatment(s) How many migraine days since receiving treatment: 5-6 days Change? in intensity of migraine?decreased Change in frequency of migraine?decreased Change in use of acute medication for migraine?decreased Change in quality of life?decreased ER visits related to migraine?0 Last treatment 3 months ago ??? Most frequent reported adverse reactions following injection of botox for chronic migraine include neck pain (9%), headache(5%), eyelid ptosis(4%), migraine(4%), muscular weaknes [id number] expiration October 2026 was diluted with 4 cc of normal saline . ??? Muscles injected- ??? Frontalis 4 sites ??? Procerus 1 site ??? Radio Disc Jockey- 2 sites ??? Temporalis- 8 sites ??? Occipitalis- 6 sites ??? Cervical paraspinals- 4 sites zygomaticus major 2 sites ??? Trapezius- 6 sites- 10 units each ??? 5 units each in 31 site ??? Total use- 195units ??? Discarded-5units [facility] Medical History Panic disorder Mild recurrent major depression Chronic migraine without aura, intractable, without status migrainosus Migraine with aura Skull fracture GERD (gastroesophageal reflux disease) Surgical History History of shoulder surgery Family History Father Asthma Mother Osteoporosis Social History Alcohol intake: current Alcohol intake frequency: holidays/special occasions only Patient Tobacco Use Status: Never used Tobacco Physical Exam Const General: cooperative and no acute distress Orientation/consciousness: patient oriented x3 Resp Effort & Inspection: normal respiratory effort and able to speak in complete sentences Neuro General: patient oriented x3 Cranial nerves: Yes CN's II-XII intact bilaterally Cognition (Neuro): normal cognition Psych Appearance: grossly normal Mental Status: mental status grossly normal Speech and movement: Normal speech and movement present Affect: normal affect Attitude: cooperative Office Procedures Botulinum toxin Injection 76649 - Migraine Procedure code (CPT) selection complete Office Meds onabotulinumtoxinA 200 unit solution for injection Performing Provider: China Olson MD Performing Location: [facility] [place] [facility] Administered by: China Olson MD on 09/24/24 15:34 Dose Route Admin Location Dispensed Lot Number Expiration Date [facility] Automatic Spreader Operator 185 unit subcut 200 units [id number] ALLERGAN/BOTOX Comments: see HPI Assessment & Plan Assessment & Plan (1) Chronic migraine without aura, intractable, without status migrainosus: Code(s): G43.719 - Chronic migraine without aura, intractable, without status migrainosus Category: Medical Plan Patient tolerated the procedure well she will call with any side effects. Orders: Orders AMB Botulinum toxin Injection - Patient Supplied N/C Today G43.719 - Chronic migraine without aura, intractable, without status migrainosus Medications: New onabotulinumtoxinA 200 units subcut ONCE 1 ea 0RF migraine G43.719 - Chronic migraine without aura, intractable, without status migrainosus Coding Level of Care Code Est Pt Level 1 (82851) Diagnoses Chronic migraine without aura, intractable, without status migrainosus G43.719 CPT Codes Botox Injection - Botox 3: 87053 - Migraine ([id number])
== END 2024-09-24 08:00 | disposition home or self-care (01) ==
LOC: HO.HSMS 07:38
PROVIDERS: PCP Psychiatry & Neurology Neurology; Visit Provider Psychiatry & Neurology Neurology
DX: G43.719 Chronic migraine without aura, intractable, without status migrainosus (principal)
CPT/HCPCS: 64615

== ENCOUNTER → 2024-09-24 07:37 | Outpatient (BNVA) | payer OTHER, SELFPAY | PROVIDERS: PCP Psychiatry & Neurology Neurology; Visit Provider Psychiatry & Neurology Neurology | DX: G43.719 Chronic migraine without aura, intractable, without status migrainosus (principal) | CPT/HCPCS: 64615; 99211; J0585 ==

== ENCOUNTER 2024-12-16 15:30 | Outpatient (AMB) | payer OTHER, SELFPAY ==
[2024-12-16 15:33] VITALS: BP 120/84; PULSE 88; O2SAT 99; BMI 20.7
--- NOTE | 2024-12-16 15:33 | MHC.OFFVIS ---
Vital Signs 12/16/24 15:33 Height 5 ft 3 in Weight 117 lb BMI 20.7 BP 120/84 Blood Pressure Location Lt brachial Position Sitting Pulse 88 Pulse Source Pulse Oximeter Pulse Oximetry (%) 99 Oxygen Delivery Method Room Air Intake Visit Reasons: 6 mo follow up Intake Note: Patient presents follow up for migraines Small Order Cutter Required: No Accompanied by: Self / Same As Patient Allergies Sulfa (Sulfonamide Antibiotics) [Sulfa (Sulfonamides)] Adverse Reaction (Verified 12/16/24 15:35) N/V Medication List - Last Reconciled 12/16/24 by RAFFY Saeed amitriptyline 10 mg PO BEDTIME 30 days citalopram 20 mg PO DAILY fremanezumab-vfrm (Ajovy) 675 mg (4.5 mL) subcut ONCE 90 days ibuprofen 200 mg PO Q6H PRN [ketoralac IM PRN] lorazepam 0.5 mg PO TID PRN onabotulinumtoxinA (Botox) 200 units IM ONCE 12 weeks ondansetron 4 mg PO Q6H PRN tramadol 50 mg PO BID PRN zolmitriptan take 1 tab at onset of headache; if no relief, may repeat 1 tab after at least 2 hrs; max = 2 tabs/24 hrs PO 30 days HPI Comments Details: 49-yr-old female presents for f/u visit of chronic migraine. Pt denies any significant interval medical changes. Pt reports she has stopped the Amitriptyline- as she was hoping to lower her overall med burden. Wonders about using Amitriptyline instead of citalopram to help manage her anxiety, as well as her chronic regional pain syndrome symptoms. Overall, patient states she continues to do much better taking both Ajovy and Botox concomitantly, than she did prior taking either 1 on its own. Alternating the Ajovy with the Botox has been more helpful as well. However, patient reports that she has had difficulty refilling her Avoy 90 day supply on time so that she can coordinate taking the Ajovy between the Botox injections. She continues to have mild headaches about 1 x per month, and a more severe migraine every few months. Sometimes does notice left trigeminal /jaw tightness associated w/ migraine. For milder migraine- taking fluids, moving around a little bit can help. Zolmitriptan p.r.n., Tylenol PRN, Tramadol prn (also uses for CRPS), and sleep continues to be helpful. Baseline headache characteristics: Aura: When she 1st had migraines, she had numbness and tingling and would speak in jibberish Headache: Oigp-bqt-gxufqf, Dull ache, stabbing if more severe, always left sided- moves up from the back of the head up into head over into the jaw and down into her neck. A/w photophobia, phonophobia, some osmophobia, left sided allodynia, sometimes nausea, lightheaded/dizzy, brain fog, watery. Prodrome symptoms: Foggy and tiredness, possibly some head pressure. [facility] Medical History Panic disorder Mild recurrent major depression Chronic migraine without aura, intractable, without status migrainosus Migraine with aura Skull fracture GERD (gastroesophageal reflux disease) Surgical History History of shoulder surgery Family History Father Asthma Mother Osteoporosis Social History Alcohol intake: current Alcohol intake frequency: holidays/special occasions only Patient Tobacco Use Status: Never used Tobacco Physical Exam Vital Signs: Last Vital Signs Pulse 88 12/16/24 15:33 BP 120/84 12/16/24 15:33 Pulse Ox 99 12/16/24 15:33 Oxygen Delivery Method Room Air 12/16/24 15:33 BMI result Body Mass Index 20.7 Const General: cooperative and no acute distress Orientation/consciousness: patient oriented x3 Resp Effort & Inspection: normal respiratory effort and able to speak in complete sentences Neuro General: patient oriented x3 Cranial nerves: Yes CN's II-XII intact bilaterally Cognition (Neuro): normal cognition Psych Appearance: grossly normal Mental Status: mental status grossly normal Speech and movement: Normal speech and movement present Affect: normal affect Attitude: cooperative Assessment & Plan Assessment & Plan (1) Chronic migraine without aura: Code(s): G43.709 - Chronic migraine without aura, not intractable, without status migrainosus Category: Medical Qualifiers: Status migrainosus presence: without status migrainosus Intractability: not intractable Qualified Code(s): G43.709 - Chronic migraine without aura, not intractable, without status migrainosus (2) CRPS (complex regional pain syndrome), type II, upper: Comment: MARTYE- following left shoulder overuse injury Code(s): G56.40 - Causalgia of unspecified upper limb Category: Medical Qualifiers: Laterality: left Qualified Code(s): G56.42 - Causalgia of left upper limb (3) Migraine with aura: Code(s): G43.109 - Migraine with aura, not intractable, without status migrainosus Category: Medical Qualifiers: Status migrainosus presence: without status migrainosus Intractability: not intractable Qualified Code(s): G43.109 - Migraine with aura, not intractable, without status migrainosus (4) Chronic migraine without aura, intractable, without status migrainosus: Code(s): G43.719 - Chronic migraine without aura, intractable, without status migrainosus Category: Medical Plan For overall headache management: Optimize good self-care, including but not limited to maintaining a healthy diet, adequate fluid intake, adequate sleep, and engaging in regular physical activity. Track headaches. Information shared on nonpharmacological treatment options, including neuromodulation devices such as Cefaly, which patient will look into. ? For acute headache treatment: Continue Zolmitriptan 5mg tab, 1 tab at onset of headache, may repeat in 2 hours. Max of 2 tabs (10mg) per 24 hours. May adjunct with OTC Tylenol 650mg q 4 hours, Ibuprofen 600mg q 6 hours, or Naproxen 440mg q 12 hrs prn. Use tramdol sparingly for migraine. Previous acute migraine medication trials: Sumatriptan- ineffective, Rizatriptan- ineffective Acute migraine medication contraindications: None at this time ? For headache prevention medication: Patient has stopped amitriptyline-in an effort to reduce polypharmacy. Discussed that she may find more benefit from trialing a medication such as duloxetine in place of both the amitriptyline and citalopram, as duloxetine can be beneficial for migraine, anxiety, and neuralgic pain. Patient will discuss with her PCP. Continue Ajovy and Botox concomitantly is more effective then taking either Botox or Ajovy alone, however will adjust timing and dose so that she is receiving alternating doses of Botox or Ajovy on 6 week intervals- in hopes of minimizing wearing off time. Continue Botox for chronic migraine tx- advised to schedule every 12 weeks rather than every 3 months, this may lessen wearing off effect. Continue Ajovy 675 mg subcu Q 90 days (alternating with Botox, so that patient is taking either Botox or Ajovy every 6 weeks). Previous migraine prevention medication trials: Topiramate- ineffective after > 8 week trial. Migraine prevention medication contraindications: CCB or BBs d/t lightheadedness and prone to low BP/hypotension ? Pt to follow-up in 6 months or sooner prn. Medications: Changed From fremanezumab-vfrm (Ajovy) start Jul 10, 2024 675 mg (4.5 mL) subcut ONCE 90 days 405 mL 3RF G43.719 - Chronic migraine without aura, intractable, without status migrainosus To fremanezumab-vfrm (Ajovy) PA approved 05/09/24-05/09/25 675 mg (4.5 mL) subcut ONCE 90 days 405 mL 3RF G43.719 - Chronic migraine without aura, intractable, without status migrainosus Discontinued amitriptyline Discontinued Reason: Patient no longer taking 10 mg PO BEDTIME 30 days 30 tabs 3RF Coding Level of Care Code Est Pt Level 4 (30541) Diagnoses Chronic migraine without aura without status migrainosus, not intractable G43.709 Status migrainosus presence: without status migrainosus Intractability: not intractable Complex regional pain syndrome type 2 of left upper extremity G56.42 Laterality: left Migraine with aura and without status migrainosus, not intractable G43.109 Status migrainosus presence: without status migrainosus Intractability: not intractable Chronic migraine without aura, intractable, without status migrainosus G43.719
== END 2024-12-16 16:14 | disposition home or self-care (01) ==
LOC: HO.HSMS 15:31
PROVIDERS: PCP Psychiatry & Neurology Neurology; Visit Provider Nurse Practitioner Family
DX: G43.709 Chronic migraine without aura, not intractable, without status migrainosus (principal); G56.42 Causalgia of left upper limb; G43.109 Migraine with aura, not intractable, without status migrainosus; G43.719 Chronic migraine without aura, intractable, without status migrainosus
CPT/HCPCS: 99214

== ENCOUNTER → 2024-12-16 15:30 | Outpatient (BNVA) | payer OTHER, SELFPAY | PROVIDERS: PCP Psychiatry & Neurology Neurology; Visit Provider Nurse Practitioner Family ==

== ENCOUNTER 2024-12-31 07:35 | Outpatient (AMB) | payer OTHER, SELFPAY ==
--- NOTE | 2024-12-31 07:38 | A.OFFVIS_ITS ---
Vital Signs 12/31/24 07:39 Height 5 ft 3 in Weight 114 lb BMI 20.2 BP 108/74 Blood Pressure Location Rt brachial Position Sitting Pulse 74 Pulse Source Pulse Oximeter Pulse Oximetry (%) 100 Oxygen Delivery Method Room Air Intake Visit Reasons: Botox Intake Note: Patient presents for botox injection. patient supplied Allergies Sulfa (Sulfonamide Antibiotics) (Sulfa (Sulfonamides)) Adverse Reaction (Verified 12/31/24 07:43) N/V Medication List - Last Reconciled 12/31/24 by China Olson MD citalopram 20 mg PO DAILY fremanezumab-vfrm (Ajovy) 675 mg (4.5 mL) subcut ONCE 90 days ibuprofen 200 mg PO Q6H PRN lorazepam 0.5 mg PO TID PRN onabotulinumtoxinA (Botox) 200 units IM ONCE 12 weeks ondansetron 4 mg PO Q6H PRN tramadol 50 mg PO BID PRN zolmitriptan take 1 tab at onset of headache; if no relief, may repeat 1 tab after at least 2 hrs; max = 2 tabs/24 hrs PO 30 days HPI Comments Details: ? 49y/o female comes for treatment of migraines with botox. How many migraine days prior to botox- 25 How long do the migraines last 1 day Intensity of migraine- 8/10 ER visits related to migraine- none Effectiveness of botox from last two treatment(s) How many migraine days since receiving treatment: 5-6 days Change? in intensity of migraine?decreased Change in frequency of migraine?decreased Change in use of acute medication for migraine?decreased Change in quality of life?decreased ER visits related to migraine?0 Last treatment 3 months ago ??? Most frequent reported adverse reactions following injection of botox for chronic migraine include neck pain (9%), headache(5%), eyelid ptosis(4%), migraine(4%), muscular weaknes [id number] expiration October 2026 was diluted with 4 cc of normal saline . ??? Muscles injected- ??? Frontalis 4 sites ??? Procerus 1 site ??? Help Desk Engineer- 2 sites ??? Temporalis- 8 sites ??? Occipitalis- 6 sites ??? Cervical paraspinals- 4 sites zygomaticus major 2 sites ??? Trapezius- 6 sites- 10 units each ??? 5 units each in 31 site ??? Total use- 195units ??? Discarded-5units [facility] Medical History Panic disorder Mild recurrent major depression Chronic migraine without aura, intractable, without status migrainosus Migraine with aura Skull fracture GERD (gastroesophageal reflux disease) Surgical History History of shoulder surgery Family History Father Asthma Mother Osteoporosis Social History Alcohol intake: current Alcohol intake frequency: holidays/special occasions only Patient Tobacco Use Status: Never used Tobacco Physical Exam Vital Signs: Last Vital Signs Pulse 74 12/31/24 07:39 BP 108/74 12/31/24 07:39 Pulse Ox 100 12/31/24 07:39 Oxygen Delivery Method Room Air 12/31/24 07:39 BMI result Body Mass Index 20.2 Const General: cooperative and no acute distress Orientation/consciousness: patient oriented x3 Resp Effort & Inspection: normal respiratory effort and able to speak in complete sentences Neuro General: patient oriented x3 Cranial nerves: Yes CN's II-XII intact bilaterally Cognition (Neuro): normal cognition Psych Appearance: grossly normal Mental Status: mental status grossly normal Speech and movement: Normal speech and movement present Affect: normal affect Attitude: cooperative Office Procedures Botulinum toxin Injection 33029 - Migraine Procedure code (CPT) selection complete Office Meds onabotulinumtoxinA 200 unit solution for injection Performing Provider: China Olson MD Performing Location: [facility] [place] [facility] Administered by: China Olson MD on 12/31/24 08:08 Dose Route Admin Location Dispensed Lot Number Expiration Date [facility] Database Manager 195 unit subcut 200 units [id number] ALLERGAN /BOTOX Total Dispensed Waste 200 units 2.5 % Comments: see HPI Assessment & Plan Assessment & Plan (1) Chronic migraine without aura, intractable, without status migrainosus: Code(s): G43.719 - Chronic migraine without aura, intractable, without status migrainosus Category: Medical Plan Patient tolerated the procedure well she will call with any side effects. Orders: Orders AMB Botulinum toxin Injection - Patient Supplied N/C Today G43.719 - Chronic migraine without aura, intractable, without status migrainosus Coding Level of Care Code Est Pt Level 1 (07983) Diagnoses Chronic migraine without aura, intractable, without status migrainosus G43.719 CPT Codes Botox Injection - Botox 3: 02621 - Migraine ([id number])
[2024-12-31 07:39] VITALS: BP 108/74; PULSE 74; O2SAT 100; BMI 20.2
== END 2024-12-31 08:00 | disposition home or self-care (01) ==
LOC: HO.HSMS 07:35
PROVIDERS: PCP Psychiatry & Neurology Neurology; Visit Provider Psychiatry & Neurology Neurology
DX: G43.719 Chronic migraine without aura, intractable, without status migrainosus (principal)
CPT/HCPCS: 64615

== ENCOUNTER → 2024-12-31 07:35 | Outpatient (BNVA) | payer OTHER, SELFPAY | PROVIDERS: PCP Psychiatry & Neurology Neurology; Visit Provider Psychiatry & Neurology Neurology | DX: G43.719 Chronic migraine without aura, intractable, without status migrainosus (principal) | CPT/HCPCS: 64615; 99211; J0585 ==

== ENCOUNTER 2025-04-09 08:02 | Outpatient (AMB) | payer OTHER, SELFPAY ==
[2025-04-09 08:05] VITALS: BP 110/82; PULSE 80; O2SAT 99; BMI 20.4
--- NOTE | 2025-04-09 08:05 | A.OFFVIS_ITS ---
Vital Signs 04/09/25 08:05 Height 5 ft 3 in Weight 115 lb BMI 20.4 BP 110/82 Blood Pressure Location Rt brachial Position Sitting Pulse 80 Pulse Source Pulse Oximeter Pulse Oximetry (%) 99 Oxygen Delivery Method Room Air Intake Visit Reasons: Botox OK PER MD Intake Note: Botox Labor Gang Supervisor Required: No Accompanied by: Self / Same As Patient Allergies Sulfa (Sulfonamide Antibiotics) (Sulfa (Sulfonamides)) Adverse Reaction (Verified 04/09/25 08:05) N/V HPI Comments Details: ? 49y/o female comes for treatment of migraines with botox. How many migraine days prior to botox- 25 How long do the migraines last 1 day Intensity of migraine- 8/10 ER visits related to migraine- none Effectiveness of botox from last two treatment(s) How many migraine days since receiving treatment: 5-6 days Change? in intensity of migraine?decreased Change in frequency of migraine?decreased Change in use of acute medication for migraine?decreased Change in quality of life?decreased ER visits related to migraine?0 Last treatment 3 months ago ??? Most frequent reported adverse reactions following injection of botox for chronic migraine include neck pain (9%), headache(5%), eyelid ptosis(4%), migraine(4%), muscular weaknes [id number] expiration May 2027 was diluted with 4 cc of normal saline . ??? Muscles injected- ??? Frontalis 4 sites ??? Procerus 1 site ??? Senior Systems Architect- 2 sites ??? Temporalis- 8 sites ??? Occipitalis- 6 sites ??? Cervical paraspinals- 4 sites zygomaticus major 2 sites ??? Trapezius- 6 sites- 10 units each ??? 5 units each in 31 site ??? Total use- 195units ??? Discarded-5units [facility] Medical History Panic disorder Mild recurrent major depression Chronic migraine without aura, intractable, without status migrainosus Migraine with aura Skull fracture GERD (gastroesophageal reflux disease) Surgical History History of shoulder surgery Family History Father Asthma Mother Osteoporosis Social History Alcohol intake: current Alcohol intake frequency: holidays/special occasions only Patient Tobacco Use Status: Never used Tobacco Physical Exam Vital Signs: Last Vital Signs Pulse 80 04/09/25 08:05 BP 110/82 04/09/25 08:05 Pulse Ox 99 04/09/25 08:05 Oxygen Delivery Method Room Air 04/09/25 08:05 BMI result Body Mass Index 20.4 Const General: cooperative and no acute distress Orientation/consciousness: patient oriented x3 Resp Effort & Inspection: normal respiratory effort and able to speak in complete sentences Neuro General: patient oriented x3 Cranial nerves: Yes CN's II-XII intact bilaterally Cognition (Neuro): normal cognition Psych Appearance: grossly normal Mental Status: mental status grossly normal Speech and movement: Normal speech and movement present Affect: normal affect Attitude: cooperative Office Procedures Botulinum toxin Injection 67058 - Migraine Procedure code (CPT) selection complete Office Meds onabotulinumtoxinA 200 unit solution for injection Performing Provider: China Olson MD Performing Location[place] [facility] Administered by: China Olson MD on 04/09/25 08:31 Dose Route Admin Location Dispensed Lot Number Expiration Date [facility] Apple Thinner 195 unit subcut 200 units [id number] ALLERGAN /BOTOX Total Dispensed Waste 200 units 2.5 % Comments: see HPI Assessment & Plan Assessment & Plan (1) Chronic migraine without aura, intractable, without status migrainosus: Code(s): G43.719 - Chronic migraine without aura, intractable, without status migrainosus Category: Medical Plan Patient tolerated the procedure well she will call with any side effects. Orders: Orders AMB Botulinum toxin Injection - Patient Supplied N/C Today G43.719 - Chronic migraine without aura, intractable, without status migrainosus Coding Level of Care Code Est Pt Level 1 (38694) Diagnoses Chronic migraine without aura, intractable, without status migrainosus G43.719 CPT Codes Botox Injection - Botox 3: 88214 - Migraine ([id number])
--- OUTSIDE RECORDS SUMMARY | 2025-04-09 08:14 | XMS_ITS | Encounter Summary ---
Author Organization [facility] Address [address] [facility] [address] [place] [address] Phone Care Team Providers Care Dials Supervisor Name Role Phone Carmen Gomez NP Primary Care Provider [phone] Otto Cary MD Unavailable [phone] Otto Cary MD Unavailable [phone] Stas Lundberg MD Unavailable [phone] Graciela Hatfield DO Unavailable [phone] Gerardo Mckeon MD Unavailable Carol Larson MD, MPH Unavailable Karissa Hui MD Unavailable Rodolfo Galeas MD Unavailable Carol Larson MD, MPH Unavailable Jeffery Lombardo MD Unavailable +[phone] Gisela Alas MD Unavailable Shelby Lyle MD Unavailable +[phone] Graciela Hatfield DO Unavailable [phone] Shelby Lyle MD Unavailable [phone] Graciela Hatfield DO Unavailable [phone] Shelby Lyle MD Unavailable + Jeffery Lombardo MD Unavailable [phone] Encounter Details Date Type Department Care Team (Late st Contact Info) Description 05/25/2018 Procedure Pass OR Admitting Dept - Virtual Department [address] [place] [address] Social History Tobacco Use Types Packs/Day Years Used Date Smoking Tobacco: Never Smokeless Tobacco: Never Alcohol Use Standard Drinks/Week Comments No 0 (1 standard drink = 0.6 oz pur e alcohol) rare Comments No Sex and Gender Information Value Date Recorded Sex Assigned at Female 06/04/2018 12:08 PM EST Legal Sex Female 9:29 PM EDT Gender Identity Female 06/04/2018 12:08 PM EST Sexual Orientation Straight 06/04/2018 12 :08 PM EST 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 Not on file documented as of this encounter Plan of Treatment Not on file documented as of this encounter Visit Diagnoses Not on filedocumented in this encounter Care Teams Dials Supervisor Relationship Specialty Start Date End Date Carmen Gomez NP [address] [place] [address] PCP - General 07/13/17 Otto Cary MD [address] [place] [address] [email or web address] Insurance Assigned Provider 05/12/18 1 08/11/17 Otto Cary MD [address] [place] [address] [email or web address] Insurance Assigned Provider 07/14/18 Stas Lundberg MD [address] [place] [phone] [email or web address] Insurance Assigned Provider 08/11/1811/10/18 Graciela Hatfield DO [address] [place] [address] [place] [address] Insurance Assigned Provider 11/10/18 01/12/19 Gerardo Mckeon MD [address] [place] [address] [email or web address] Insurance Assigned Provider 01/12/19 Carol Larson MD, MPH [address] [place] [address] [email or web address] Insurance Assigned Provider 03/16/1904/09 Karissa Hui MD [address] [place] [address] [email or web address] Insurance Assigned Provider 04/20/19 Rodolfo Galeas MD [address] [place] [address] [email or web address] Insurance Assigned Provider 06/15/19 Carol Larson MD, MPH [address] [place] [address] [email or web address] Insurance Assigned Provider 11/13/1903/21 Jeffery Lombardo MD [address] [place] [phone] Insurance Assigned Provider 03/21/20 Gisela Alas MD [address] [place] [phone] Insurance Assigned Provider 07/18/20 Shelby Lyle MD [address] [place] [address] [place] [phone] [email or web address] Insurance Assigned Provider 12/13/20 10/16/21 Graciela Hatfield DO [address] [place] [address] [place] [address] [email or web address] Insurance Assigned Provider 10/16/21 07/16/22 Shelby Lyle MD [address] [place] [address] [place] [address] [email or web address] Insurance Assigned Provider 07/16/22 08/13/22 Graciela Hatfield DO [address] [place] [address] [place] [phone] Insurance Assigned Provider 08/13/22 10/22/22 Shelby Lyle MD [address] [place] [address] [place] [address] [email or web address] Insurance Assigned Provider 10/22/22 11/12/22 Jeffery Lombardo MD [address] [place] [address] [place] [address] [email or web address] Insurance Assigned Provider 11/12/22 documented as of this encounter Additional Source Comments The information contained in this document represents components of the legal health record. It is not the complete legal health record.[facility]
--- OUTSIDE RECORDS SUMMARY | 2025-04-09 08:14 | XMS_ITS | Encounter Summary ---
Author Organization [facility] Address [address] [facility] [address] [place] [address] Phone Care Team Providers Care See Supervisor Name Role Phone Carmen Gomez NP Primary Care Provider [phone] Graciela Hatfield DO Unavailable [phone] Otto Cary MD Unavailable [phone] Otto Cary MD Unavailable [phone] Stas Lundberg MD Unavailable [phone] Terry Hatfielda L DO Unavailable [phone] Gerardo Mckeon MD Unavailable Carol Larson MD, MPH Unavailable Karissa Hui MD Unavailable Rodolfo Galeas MD Unavailable Carol Larson MD, MPH Unavailable Jeffery Lombardo MD Unavailable [phone] Gisela Alas MD Unavailable [phone] Shelby Lyle MD Unavailable [phone] Graciela Hatfield DO Unavailable [phone] Shelby Lyle MD Unavailable [phone] Graciela Hatfield DO Unavailable [phone] Shelby Lyle MD Unavailable Jeffery Lombardo MD Unavailable Encounter Details Date Type Department Care Team (Late st Contact Info) Description 04/26/2018 Procedure Pass [facility], [facility] - [address] [place] [address] Social History Tobacco Use Types Packs/Day Years Used Date Smoking Tobacco: Never Smokeless Tobacco: Never Alcohol Use Standard Drinks/Week Comments No 0 (1 standard drink = 0.6 oz pur e alcohol) Comments Unknown Sex and Gender Information Value Date Recorded Sex Assigned at Female 06/04/2018 12:08 PM EST Legal Sex Female 9:29 PM EDT Gender Identity Female 06/04/2018 12:08 PM EST Sexual Orientation Straight 06/04/2018 12 :08 PM EST 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 Not on file documented as of this encounter Last Filed Vital Signs Vital Sign Reading Time Taken Comments Blood Pressure - - Pulse - - Temperature - - Respiratory Rate - - Oxygen Saturation - - Inhaled Oxygen Concentration - - Weight 50.8 kg (112 lb) 04/26/2018 7:19 PM EDT Height 160 cm (5' 3 ) 04/26/2018 7:19 PM EDT Body Mass Index 19.84 04/26/2018 7:19 PM EDT documented in this encounter Plan of Treatment Not on file documented as of this encounter Visit Diagnoses Not on filedocumented in this encounter Care Teams See Supervisor Relationship Specialty Start Date End Date Carmen Gomez NP [address] [place] [phone] PCP - General 07/13/17 Graciela Hatfield DO [address] [place] [address] [place] [phone] Insurance Assigned Provider 03/10/18 05/12/18 Otto Cary MD [address] [place] [phone] [email or web address] Insurance Assigned Provider 05/12/18 1 08/11/17 Otto Cary MD [address] [place] [address] [email or web address] Insurance Assigned Provider 07/14/18 Stas Lundberg MD [address] [place] [address] [phone] [email or web address] Insurance Assigned Provider 08/11/1811/10/18 Graciela Hatfield DO [address] [place] [address] [email or web address] Insurance Assigned Provider 11/10/18 01/12/19 Gerardo Mckeon MD [address] [place] [address] [email or web address] Insurance Assigned Provider 01/12/19 Carol Larson MD, MPH [address] [place] [address] [email or web address] Insurance Assigned Provider 03/16/1904/09 Karissa Hui MD [address] [place] [address] Insurance Assigned Provider 04/20/19 Rodolfo Galeas MD [address] [place] [address] [email or web address] Insurance Assigned Provider 06/15/19 Carol Larson MD, MPH [address] [place] [address] [email or web address] Insurance Assigned Provider 11/13/1903/21 Jeffery Lombardo MD [address] [place] [address] [email or web address] Insurance Assigned Provider 03/21/20 Gisela Alas MD [address] [place] [address] [email or web address] Insurance Assigned Provider 07/18/20 Shelby Lyle MD [address] [place] [address] [place] [address] [email or web address] Insurance Assigned Provider 12/13/20 10/16/21 Graciela Hatfield DO [address] [place] [address] [place] Insurance Assigned Provider 10/16/21 07/16/22 Shelby Lyle MD [address] [place] [address] [place] [address] [email or web address] Insurance Assigned Provider 07/16/22 08/13/22 Grcaiela Hatfield DO [address] [place] [address] [place] [address] Insurance Assigned Provider 08/13/22 10/22/22 Shelby Lyle MD [address] [place] [address] [place] [address] [email or web address] Insurance Assigned Provider 10/22/22 11/12/22 Jeffery Lombardo MD [address] [place] [address] [place] [address] [email or web address] Insurance Assigned Provider 11/12/22 documented as of this encounter Additional Source Comments The information contained in this document represents components of the legal health record. It is not the complete legal health record.[facility]
--- OUTSIDE RECORDS SUMMARY | 2025-04-09 08:14 | XMS_ITS | Clinical Summary ---
Author Organization [facility] Address [address] [facility] [address] [place] [phone] Phone Care Team Providers Care Continuous [employer] Miner Name Role Phone Carmen oGmez NP Primary Care Provider Allergies Active Allergy Reactions Criticality Noted Date Comments Sulfa (Sulfonamide Antibiotics) Nausea and/or Vomiting Medium 10/24/2017 Medications citalopram (CELEXA) 20 MG tablet Take 20 mg by mouth daily. Active levonorgestrel (MIRENA) 20 mcg/24 hr (5 years) intrauterine device 1 each by Intrauterine route once for 1 dose. Over 5 years 1 each 11/08/19 18 Active multivitamin per tablet Take 1 tablet by mouth daily. Active traMADol (ULTRAM) 50 mg tablet Take 50 mg by mouth daily as needed. 0 05/08/20 18 Active ibuprofen (ADVIL,MOTRIN) 200 MG tablet Take 200-400 mg by mouth as needed for pain (specific location in comments). Active rizatriptan (MAXALT-RESIDENTIAL THERAPIST) 10 MG disintegrating tabletIndications: Intractable migraine with aura with status migrainosus Take 5 or 10mg as needed for migraine. May repeat in 2 hours if needed. Max dose of 20mg daily. 10 tablet 5 05/17/20 21 Active coenzyme Q10 200 mg capsule TAKE 2 CAPSULES (400MG) BY MOUTH EVERY DAY*OT,NC 03/08/20 21 Active fremanezumab-vfrm (AJOVY AUTOINJECTOR) 225 mg/1.5 mL AtInIndications:In tractable migraine with aura with status migrainosus INJECT 675 MG UNDER THE SKIN EVERY 3 (THREE) MONTHS. 4.5 mL 3 08/04/19 Active clonazePAM (KLONOPIN) 0.5 MG tablet 0.5 mg. 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, not intractable 10/24/2017 Assessment & Plan (10/24/2017 10:22 AM EDT): Discussed trial of Mirena, r/bs and alternatives reviewed Labral tear of long head of left biceps tendon Encounters Date Type Department Care Team Description 02/14/2025 8:22 AM EDT - 02/14/2025 11:59 PM EDT Hospital Encounter [address] [address] Donte Albright, PAIsabelC Discharge Disposition: Home or Self Care 02/14/2025 8:15 AM EDT Office Visit [facility] [address] [place] [phone] Donte Albright, PA-C Injury of triangular fibrocartilage complex (TFCC) of left wrist, initial encounter (Primary Dx); Pain, wrist, left from Last 3 Months Family History Medical History Relation Comments Cancer Maternal Grandmother Relation Status Comments Father Alive Maternal Grandmother Mother Alive Social History Tobacco Use Types Packs/Day Years Used Date Smoking Tobacco: Never Smokeless Tobacco: Never Alcohol Use Standard Drinks/Week Comments No 0 (1 standard drink = 0.6 oz pur e alcohol) rare Education Answer Date Recorded Are you interested in more education? Not on vinod e 11/04/2022 Are you concerned about learning? Not on file 11/04/2022 No 11/04/2022 No 11/04/2022 Digital Access Answer Date Recorded No 12/05/2022 No 12/05/2022 Reliable internet access at home? Not on file 12/05/2022 Device with a working camera? 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 Not on file Last Filed Vital Signs Vital Sign Reading Time Taken Comments Blood Pressure 112/74 11/21/2023 3:57 PM EDT Pulse 93 09/21/2021 1:12 PM EDT Temperature 36.4 C (97.5 F) 09/21/2021 1:12 PM EDT Respiratory Rate 18 01/02/2019 6:43 PM EDT Oxygen Saturation 99% 09/21/2021 1:12 PM EDT Inhaled Oxygen Concentration - - Weight 49.9 kg (110 lb) 11/21/2023 3:57 PM EDT Height 161.9 cm (5' 3.75 ) 11/21/2023 3:57 PM ED T Body Mass Index 19.03 11/21/2023 3:57 PM EDT Plan of Treatment Health Maintenance Due Date Last Done Comments LIPID PANEL 1974 DEPRESSION SCREENING 1986 HEPATITIS C SCREENING 1992 HIV ONE-TIME SCREENING (18-65 YEARS) 1992 MAMMOGRAM 2014 Adult Td,Tdap Booster 07/26/2017 07/26/2007 COLOGUARD 12/08/2019 COLONOSCOPY 12/08/2019 COLORECTAL CANCER SCREENING 12/08/2019 FIT TEST 12/08/2019 FOBT 12/08/2019 SIGMOIDOSCOPY 12/08/2019 VIRTUAL COLONOSCOPY 12/08/2019 PNEUMOCOCCAL VACCINES (50+ years) (1 of 1 - PCV) 2024 ZOSTER VACCINES (1 of 2) 2024 INFLUENZA VACCINE (#1) 2025 9, 04/15/2017, 05/04/2012, Additional history exists COVID-19 VACCINE (3 - season) 2025 07/25/2020, 06/27/2020 PAP SMEAR 05/25/2025 05/25/2022 IUD 11/21/2031 11/21/2023 SMOKING STATUS SCREENING (Once After 26 Yrs) Completed 11/21/2023 HEPATITIS A VACCINES Aged Out No long er eligible based on patient's age to complete this topic HIB VACCINES Aged Out No longer eligi ble based on patient's age to complete this topic MENINGOCOCCAL VACCINES (ACWY) Aged Out No longer eligible based on patient's age to complete this topic MENINGOCOCCAL VACCINES (B) Aged Out N o longer eligible based on patient's age to complete this topic Medical Devices Implanted Type Area Panman Device Identifier Shelf Expiration Date Model / Serial / Lot Iud Implanted:11/07 (Quantity not on file) Intrauterine Device [place] Suture 4.5mm Arthroscopy Reelx Stt Peek Stainless Steel Core Knotless Sharp Tip Expandable Sterile Bx/5ea - [id number] Implanted:Qty: 1 on 05/25/2018 by Moshe Joseph DO at [facility] Left: Shoulder [employer] 12/19/2019 [id number] / / [id number] Procedures Procedure Name Priority Date/Time Associated Diagnosis Comments XR WRIST 3 OR MORE VIEWS (LEFT) Routine 02/14/2025 8:29 AM EDT Pain, wrist, left PAP TEST Routine 05/25/2022 12:00 AM EST from Last 3 Months or Most Recently Relevant to Health Maintenance Results * XR WRIST 3 OR MORE VIEWS (LEFT) (02/14/2025 8:29 AM EDT) Narrative SYSTEMGENERATED, DOCUMENTATION - 02/14/2025 8:29 AM EDT This image report has been auto-finalized and has not been read by a Radiologist. Interpretation has been included in the provider encounter note for this date of service. Donte Albright PA-C IMG XR UPPER EXTREMITY Final Result * Pap Smear (05/25/2022 12:00 AM EST) 05/25/2022 05/26/2022 9:2 1 AM EST Narrative SEE NARRATIVE - 05/31/2022 2:16 PM EST [address] [address] [employer] Converter: Tammy Carrion MD ATHLETIC TEAM PHYSICIAN Cytology Report FINAL DIAGNOSIS A. PAP SMEAR (SUREPATH) CE: SPECIMEN ADEQUACY: Satisfactory for evaluation; transformation zone present. INTERPRETATION: NEGATIVE FOR INTRAEPITHELIAL LESION OR MALIGNANCY. Parakeratosis Electronically Signed Out By: MD Kristel Clayton CT(ASCP) By his/her signature above, the pathologist listed as making the Final Diagnosis certifies that he/she has personally reviewed this case and confirmed or corrected the diagnosis. The Pap test is a screening test primarily for squamous cancers and precursors and has associated false-negative and false-positive results. New technologies such as liquid-based preparations may decrease but will not eliminate all false-negative results. Regular sampling and follow-up of unexplained clinical signs and symptoms are recommended to minimize false negative results. PROCEDURES/ADDENDA HPV Testing (Requested) Ordered Date: 05/26/2022 A. PAP SMEAR (SUREPATH) CE: Human Papilloma Virus Test Negative for high-risk human papillomavirus types 16, 18, 45 and the Other high risk probe set (Includes 31, 33, 35, 39, 51, 52, 56, 58, 59, 66, 68) by [employer] Onclarity HR-HPV analysis. Clinical correlation is advised. This HPV test was performed at [facility], [address] [place] [address]. This test has been FDA approved for SurePath cervical cytology specimens. The accuracy and precision of this test for all other specimen sources has been verified in the Cytopathology Laboratory of the [facility] and has not been cleared or approved by the U.S. Food and Drug Administration. Clinical correlation is advised. CLINICAL HISTORY Date of Last Menstrual Period: Not Provided Menstrual History: Unknown Other Clinical Conditions: Screening Pap SPECIMEN SOURCE A: PAP SMEAR (SUREPATH) CE Patient Name: ISHAAN HALL : 1975 (Age: 46) Sex: F Institution: [facility] Location: [facility] Date of Collection: 05/25/2022 Date of Reported: 05/31/2022 14:16 Results to: Carmen Gomez NP Carmen Gomez NP CYTOLOGY ORDERABLES Final R esult SEE NARRATIVE from Last 3 Months or Most Recently Relevant to Health Maintenance Insurance [facility] [employer] [facility] [employer] [facility] ADMINISTRATORS [facility]EFITS ADMINISTRATORS [facility] BENEFITS ADMINISTRATORS Advance Directives For more information, please contact: [phone] (9AM - 5PM Isabelle/[facility], Monday-Monday) * Full Code (Presumed) (Latest Code Status on File) Date Activated Date Inactivated Comments 05/25/2018 10:39 AM 05/25/2018 6:25 PM Care Teams Continuous [employer] Miner Relationship Specialty Start Date End Date Carmen Gomez NP [address] [place] [phone] PCP - General 07/13/17 Additional Source Comments The information contained in this document represents components of the legal health record. It is not the complete legal health record.[facility]
== END 2025-04-09 08:29 | disposition home or self-care (01) ==
LOC: HO.HSMS 08:03
PROVIDERS: PCP Psychiatry & Neurology Neurology; Visit Provider Psychiatry & Neurology Neurology
DX: G43.719 Chronic migraine without aura, intractable, without status migrainosus (principal)
CPT/HCPCS: 64615

== ENCOUNTER → 2025-04-09 08:02 | Outpatient (BNVA) | payer OTHER, SELFPAY | PROVIDERS: PCP Psychiatry & Neurology Neurology; Visit Provider Psychiatry & Neurology Neurology | DX: G43.719 Chronic migraine without aura, intractable, without status migrainosus (principal) | CPT/HCPCS: 64615; 99211; J0585 ==